=== PATIENT | female | born 1965 | race American Indian/Alaskan Native ===

== ENCOUNTER 2017-05-23 13:49 | Emergency (ER) | payer OTHER ==
--- NOTE | 2017-05-23 14:45 | Emergency Department Report ---
HPI - General Chief Complaint: Fall Time Seen by Provider: 05/23/17 14:28 - HPI HPI: This is a 52-year-old Afro-Nepalese female presents the emergency department after a slip and fall at school, where she works, that occurred just prior to presentation. She slipped on some water that was on a tiled floor and fell onto her knee and then fell backwards and hit her head. She denies any loss of consciousness. She has some pain to the front forehead, the back of her neck. She has pain to the right shoulder, right forearm, right knee and right foot. She also complains that she split the left great toenail. She has a past medical history of hypertension. Primary care physician is Dr. Ayers. She is not taken anything for her symptoms prior to presentation. ED Past Medical Hx - Past Medical History Previous Medical History?: Yes Hx Hypertension: Yes - Surgical History Past Surgical History?: Yes Additional Surgical History: wisdom teeth - Social History Smoking Status: Never Smoker Substance Use Type: None - Medications Home Medications: Home Medications Medication Instructions Recorded Confirmed Last Taken Type HYDROcodone/APAP 5-325 [[place] 1 each PO Q6HR PRN #12 tablet 05/23/17 Unknown Rx 5/325] Hydrochlorothiazide [Hctz] 12.5 mg PO QDAY 05/23/17 05/23/17 Unknown History Ibuprofen [Motrin 800 MG tab] 800 mg PO Q8HR PRN #20 tablet 05/23/17 Unknown Rx ED Review of Systems ROS: Stated complaint: FALL/RIGHT SIDE PAIN Other details as noted in HPI Comment: All other systems reviewed and negative Constitutional: denies: chills, fever Eyes: denies: eye pain, eye discharge, vision change ENT: denies: ear pain, throat pain Respiratory: denies: cough, shortness of breath, wheezing Cardiovascular: denies: chest pain, palpitations Gastrointestinal: denies: abdominal pain, nausea, diarrhea Genitourinary: denies: urgency, dysuria, discharge Musculoskeletal: arthralgia, myalgia Skin: denies: rash, lesions Neurological: headache. denies: weakness, numbness Physical Exam - Physical Exam Vital Signs: Vital Signs 05/23/17 05/23/17 14:00 14:08 Temperature 98.5 F Pulse Rate 79 Respiratory 18 18 Rate Blood Pressure 142/86 O2 Sat by Pulse 100 Oximetry Physical Exam: GENERAL: The patient is well-developed well-nourished. HEENT: Normocephalic. Atraumatic. Extraocular motions are intact. Patient has moist mucous membranes. Pupils equal reactive to light bilaterally. NECK: Supple. Trachea is midline. Full range of motion. There is some tenderness to palpation to both the midline and bilateral paraspinal neck. CHEST/LUNGS: Clear to auscultation. There is no respiratory distress noted. HEART/CARDIOVASCULAR: Regular. There is no tachycardia. There is no gallop rub or murmur. ABDOMEN: Abdomen is soft, nontender. Patient has normal bowel sounds. There is no abdominal distention. Morbidly obese habitus. SKIN: Skin is warm and dry. There is a fracture of the nail of the left great toe. NEURO: The patient is awake, alert, and oriented. The patient is cooperative. The patient has no focal neurologic deficits. The patient has normal speech. MUSCULOSKELETAL: There is tenderness to palpation along the right shoulder, forearm, right knee and right foot but no obvious deformity. Negative anterior and posterior drawer test of the right knee. No laxity with valgus or varus stress of the right knee. Radial pulses +2 over 4 bilaterally. Pedal pulses + 2 over 4 bilaterally. Cap refill less than 2 seconds. ED Course Vital Signs 05/23/17 05/23/17 14:00 14:08 Temperature 98.5 F Pulse Rate 79 Respiratory 18 18 Rate Blood Pressure 142/86 O2 Sat by Pulse 100 Oximetry ED Medical Decision Making - Radiology Data Radiology results: report reviewed, image reviewed interpreted by me: X-ray of the right shoulder, right forearm, right knee and right foot do not show any fractures, dislocations or any acute processes CT of the head does not show any acute process including no hemorrhage, mass, shift, diffuse edema or skull fracture. CT of the cervical spine stopped show any fracture, subluxation or any acute process. - Medical Decision Making 52-year-old female presents to the emergency department with complaint of a headache, neck pain, right shoulder and forearm pain, right knee and foot pain, that occurred after the patient slipped on water on the floor and fell onto that leg and eventually hit her head. No loss of consciousness. She does not have any focal, motor or sensory deficits in her cranial nerves are intact. X- rays were done of the painful joints but there was no fracture, dislocation or any acute processes. CT was done of the head and cervical spine that also did not show any fracture, bleed, dislocation or any acute processes. She was given a pain medication with some good relief. Towards the end of the workup she developed some spasms in the left leg so she received a muscle relaxing shot. She did get some relief. Patient was placed in a right knee immobilizer and given a right upper extremity sling. She was discharged home with some pain medications and a referral for the orthopedist. Vital signs stable throughout her ED course. She will return to the ER with any worsening of her symptoms or any acute distress. - Differential Diagnosis fracture, dislocation, subluxation, sprain, strain Critical Care Time: No Critical care attestation.: If time is entered above; I have spent that time in minutes in the direct care of this critically ill patient, excluding procedure time. ED Disposition Clinical Impression: Right foot pain Fall Qualifiers: Encounter type: initial encounter Qualified Code(s): W19.XXXA - Unspecified fall, initial encounter Right shoulder pain Qualifiers: Chronicity: acute Qualified Code(s): M25.511 - Pain in right shoulder Right knee pain Qualifiers: Chronicity: acute Qualified Code(s): M25.561 - Pain in right knee Disposition: - TO HOME OR SELFCARE Is pt being admited?: No Condition: Stable Instructions: Knee Pain (ED), Arthralgia (ED), Fall Prevention (ED) Additional Instructions: Please follow-up with a primary care physician. I've given you a referral for a local orthopedist, Dr. Ceja, the follow-up regarding your right shoulder, arm, knee and foot pain. Return to the emergency department with any worsening of your symptoms or any acute distress. You've been prescribed a medication that is sedating. Therefore this medication cannot be mixed with alcohol, or taken prior to driving, working, or being responsible for children. Prescriptions: HYDROcodone/APAP 5-325 [[place] 5/325] 1 each PO Q6HR PRN #12 tablet PRN Reason: Pain Ibuprofen [Motrin 800 MG tab] 800 mg PO Q8HR PRN #20 tablet PRN Reason: Pain Referrals: FIDEL HERNADEZ MD [Primary Care Provider] - 3-5 Days KALEIGH CEJA MD [Staff Physician] - 3-5 Days Forms: Work/School Release Form(ED) Time of Disposition: 17:31
--- NOTE | 2017-05-23 15:38 | XRay Report ---
RIGHT FOOT, 3 views: History: Right foot pain. The bony architecture is intact. Bony alignment is normal. No soft tissue abnormalities are seen. The joint spaces appear preserved. IMPRESSION: No acute injury is appreciated.
--- NOTE | 2017-05-23 15:39 | XRay Report ---
RIGHT KNEE, 3 views: History: Right knee pain. Moderate tricompartmental osteoarthritic changes are identified. No evidence for fracture, bone lesion or malalignment. Small joint effusion is suspected. IMPRESSION: No acute process. Osteoarthritis.
--- NOTE | 2017-05-23 15:39 | XRay Report ---
RIGHT FOREARM: History: Right arm pain. 2 nonstandard views of the right forearm are presented. No acute osseous abnormality or joint pathology is detected. The olecranon is not included. IMPRESSION: Limited but grossly negative right forearm.
--- NOTE | 2017-05-23 15:40 | XRay Report ---
RIGHT SHOULDER: History: Right shoulder pain. Routine views demonstrate normal bony and soft tissue structures with normal joint alignment of the shoulder. IMPRESSION: Unremarkable right shoulder.
[2017-05-23] MEDS ORDERED: PERCOCET 5/325 PO ONE (15:55)
--- NOTE | 2017-05-23 16:24 | Cat Scan Report ---
Cranial CT without contrast. History: Head trauma with pain. Findings: There is no evidence of acute hemorrhage or infarct. No masses or extra-axial collections. The ventricles are normal in size and contour. The posterior fossa is normal. The calvarium is intact. Round tiny calcifications in the corpus callosum are incidental findings. Impression: No acute findings.
--- NOTE | 2017-05-23 16:30 | Cat Scan Report ---
CT of the cervical spine without contrast. History: Neck pain after trauma. Findings: Study is technically suboptimal due to patient's body habitus resulting in poor image quality especially in the lower cervical spine. No definite evidence of fracture or subluxation is seen. There is [id number] spondylosis at C5-6 and C6-7. The odontoid is intact. No prevertebral soft tissue edema is seen. Impression: No acute findings. Please note technical limitations due to body habitus.
[2017-05-23] MEDS ORDERED: VALIUM IM ONE (17:41)
[2017-05-23 18:34] VITALS: BP 133/84
== END 2017-05-23 18:33 | disposition home or self-care (01) ==
LOC: ED 13:49
DX: M25.561 Pain in right knee (principal); M25.511 Pain in right shoulder; M79.671 Pain in right foot; I10 Essential (primary) hypertension; W01.0XXA Fall on same level from slipping, tripping and stumbling without subsequent striking against object, initial encounter; Y93.89 Activity, other specified; Y99.8 Other external cause status; Y92.89 Other specified places as the place of occurrence of the external cause
CPT/HCPCS: 29505; 70450; 72125; 73030; 73090; 73562; 73630; 96372; 99285; J3360

== ENCOUNTER 2018-07-01 09:36 | Emergency (ER) | payer OTHER ==
--- NOTE | 2018-07-01 11:06 | Emergency Department Report ---
HPI - General Chief Complaint: Dyspnea/Respdistress Time Seen by Provider: 07/01/18 10:50 ED Past Medical Hx - Past Medical History Hx Hypertension: Yes Additional medical history: LOW K+ - Surgical History Additional Surgical History: wisdom teeth - Social History Smoking Status: Never Smoker Substance Use Type: None - Medications Home Medications: Home Medications Medication Instructions Recorded Confirmed Last Taken Type HYDROcodone/APAP 5-325 [[place] 1 each PO Q6HR PRN #12 tablet 05/23/17 Unknown Rx 5/325] Ibuprofen [Motrin 800 MG tab] 800 mg PO Q8HR PRN #20 tablet 05/23/17 Unknown Rx hydroCHLOROthiazide [Hctz] 12.5 mg PO QDAY 05/23/17 05/23/17 Unknown History ED Review of Systems ROS: Stated complaint: GENERAL WEAKNESS Other details as noted in HPI Physical Exam - Physical Exam Vital Signs: Vital Signs 07/01/18 07/01/18 09:59 10:23 Temperature 99.1 F Pulse Rate 72 Respiratory 18 22 Rate Blood Pressure 144/75 O2 Sat by Pulse 100 Oximetry ED Course Vital Signs 07/01/18 07/01/18 09:59 10:23 Temperature 99.1 F Pulse Rate 72 Respiratory 18 22 Rate Blood Pressure 144/75 O2 Sat by Pulse 100 Oximetry Critical care attestation.: If time is entered above; I have spent that time in minutes in the direct care of this critically ill patient, excluding procedure time. ED Disposition Condition: Stable Referrals: MEHNAZ SIMMS MD [Primary Care Provider] - 3-5 Days
--- NOTE | 2018-07-01 11:07 | Emergency Department Report ---
Blank Doc - Documentation Documentation: 53-year-old female with history of hypertension presents to ED with shortness of breath since this morning. Patient reports near syncopal event while at work today. Patient denies chest pain, headache. Reports feeling dizzy and lightheaded. Patient also states she has noticed weight gain even while on a diet currently. Patient states she feels as if she may be retaining fluid. States her hands and legs feel tight. Denies any calf tenderness. On exam patient has trace pitting edema bilateral lower legs. Will obtain labs EKG chest x-ray.
[2018-07-01 11:25] LABS: Basophils % (Auto) 0.3 % (0.0-1.8); Eosinophils # (Auto) 0.1 K/mm3 (0.0-0.4); Hematocrit 38.2 % (30.3-42.9); Hemoglobin 12.3 gm/dl (10.1-14.3); Lymphocytes # (Auto) 2.2 K/mm3 (1.2-5.4); Lymphocytes % (Auto) 34.1 % (13.4-35.0); Mean Corpuscular HGB Conc 32 % (30-34); Mean Corpuscular Hemoglobin 28 pg (28-32); Mean Corpuscular Volume 87 fl (79-97); Monocytes # (Auto) 0.4 K/mm3 (0.0-0.8); Monocytes % (Auto) 5.7 % (0.0-7.3); Platelet Count 243 K/mm3 (140-440); Red Blood Count 4.41 M/mm3 (3.65-5.03)
[2018-07-01 11:35] LABS: INR 1.04 (0.87-1.13)
[2018-07-01 11:36] LABS: Partial Thromboplastin Time 28.4 Sec. (24.2-36.6)
--- NOTE | 2018-07-01 11:46 | XRay Report ---
ROUTINE CHEST, TWO VIEWS: HISTORY: Short of breath. The trachea, heart, mediastinal contour, lung melara and bony thorax are unremarkable. IMPRESSION: Unremarkable chest x-ray.
[2018-07-01 11:49] LABS: BUN/Creatinine Ratio 16; Blood Urea Nitrogen 11 mg/dL (7-17); Calcium 8.6 mg/dL (8.4-10.2); Hemolysis Index 4
--- NOTE | 2018-07-01 12:22 | Emergency Department Report ---
ED General Adult HPI - General Chief complaint: Dyspnea/Respdistress Stated complaint: GENERAL WEAKNESS Time Seen by Provider: 07/01/18 10:50 Source: patient, RN notes reviewed Mode of arrival: Wheelchair Limitations: Physical Limitation - History of Present Illness Initial comments: Primary care Dr.: En walsh This is a 53-year-old female who was not known to this provider previously, may have a history of hypertension, and obesity. Presents to the ER with a complaint of nontraumatic shortness of breath, weakness, lower extremity swelling. Symptoms constant, worse with physical exertion decreased with rest, and do not radiate anywhere. Denies DVT, pulmonary embolus risk factors. Not sure if she snores at night. Does not reports excess tiredness or fatigue during the day. Upon initial presentation in the emergency room, patient found to have jugular venous distention, bilateral lower extremity edema. She also appeared to be quite air hungry. Her lung sounds were clear, x-ray of the chest was clear, and a lower extremity DVT study was negative. Nevertheless, I was concerned about a large pulmonary embolus given her dramatic work of breathing, and empirically obtained a CT angiogram of the chest which was interpreted as negative. Prior to interpretation, patient was started on heparin and subsequently this was discontinued. My bedside echocardiogram did not demonstrate any large pericardial effusion, and LV function appear to be grossly intact. Patient remains pain-free at this time. Discussed the case with En, and Dr. Avila will be the accepting physician at [facility] to complete cardiac risk stratification. -: Sudden Location: left, right, lower extremity Consistency: constant Improves with: none Worsens with: none Associated Symptoms: loss of appetite, malaise, shortness of breath, syncope, weakness. denies: confusion, chest pain, cough, diaphoresis, headaches, nausea/ vomiting, rash, seizure - Related Data Home Medications Medication Instructions Recorded Confirmed Last Taken hydroCHLOROthiazide [Hctz] 12.5 mg PO QDAY 05/23/17 05/23/17 Unknown Previous Rx's Medication Instructions Recorded Last Taken Type HYDROcodone/APAP 5-325 [[place] 1 each PO Q6HR PRN #12 tablet 05/23/17 Unknown Rx 5/325] Ibuprofen [Motrin 800 MG tab] 800 mg PO Q8HR PRN #20 tablet 05/23/17 Unknown Rx Allergies Allergy/AdvReac Type Severity Reaction Status Date / Time amoxicillin Allergy Rash Verified 07/01/18 09:59 ED Review of Systems ROS: Stated complaint: GENERAL WEAKNESS Other details as noted in HPI Comment: All other systems reviewed and negative ED Past Medical Hx - Past Medical History Hx Hypertension: Yes Additional medical history: LOW K+ - Surgical History Additional Surgical History: wisdom teeth - Social History Smoking Status: Never Smoker Substance Use Type: None - Medications Home Medications: Home Medications Medication Instructions Recorded Confirmed Last Taken Type HYDROcodone/APAP 5-325 [[place] 1 each PO Q6HR PRN #12 tablet 05/23/17 Unknown Rx 5/325] Ibuprofen [Motrin 800 MG tab] 800 mg PO Q8HR PRN #20 tablet 05/23/17 Unknown Rx hydroCHLOROthiazide [Hctz] 12.5 mg PO QDAY 05/23/17 05/23/17 Unknown History ED Physical Exam - General Limitations: No Limitations General appearance: in distress, obese - Head Head exam: Present: atraumatic, normocephalic - Eye Eye exam: Present: normal appearance, EOMI. Absent: nystagmus - ENT ENT exam: Present: normal exam, normal orophraynx, mucous membranes moist, normal external ear exam - Neck Neck exam: Present: normal inspection, full ROM. Absent: tenderness, meningismus - Respiratory Respiratory exam: Present: normal lung sounds bilaterally, respiratory distress. Absent: wheezes, rales, rhonchi, stridor, decreased breath sounds - Cardiovascular Cardiovascular Exam: Present: normal rhythm, bradycardia, normal heart sounds. Absent: tachycardia, irregular rhythm, systolic murmur, diastolic murmur, rubs, gallop - GI/Abdominal GI/Abdominal exam: Present: soft. Absent: distended, tenderness, guarding, rebound, rigid, pulsatile mass - Extremities Exam Extremities exam: Present: normal inspection, full ROM, pedal edema, other (2+ pulses noted in the bilateral upper, lower extremities. Compartments soft. No long bony tenderness. The pelvis is stable.). Absent: calf tenderness - Back Exam Back exam: Present: normal inspection, full ROM. Absent: tenderness, CVA tenderness (R), paraspinal tenderness, vertebral tenderness - Neurological Exam Neurological exam: Present: alert, oriented X3, CN II-XII intact, other ( Extraocular movements intact. Tongue midline. No facial droop. Facial sensation intact to light touch in the V1, V2, V3 distribution bilaterally. 5 and 5 strength in 4 extremities.. Sensation is intact to light touch in 4 extremities.). Absent: motor sensory deficit - Psychiatric Psychiatric exam: Present: anxious - Skin Skin exam: Present: warm, dry, intact, normal color. Absent: rash ED Course Vital Signs 07/01/18 07/01/18 07/01/18 09:59 10:23 11:07 Temperature 99.1 F Pulse Rate 72 74 Respiratory 18 22 20 Rate Blood Pressure 144/75 Blood Pressure 150/77 [Right] O2 Sat by Pulse 100 99 Oximetry ED Medical Decision Making - Lab Data Result diagrams: 07/01/18 11:09 07/01/18 11:09 Vital Signs 07/01/18 07/01/18 07/01/18 09:59 10:23 11:07 Temperature 99.1 F Pulse Rate 72 74 Respiratory 18 22 20 Rate Blood Pressure 144/75 Blood Pressure 150/77 [Right] O2 Sat by Pulse 100 99 Oximetry Lab Results 07/01/18 07/01/18 07/01/18 Range/Units 11:09 11:09 11:09 WBC 6.5 (4.5-11.0) K/mm3 RBC 4.41 (3.65-5.03) M/mm3 Hgb 12.3 (10.1-14.3) gm/dl Hct 38.2 (30.3-42.9) % MCV 87 (79-97) fl MCH 28 (28-32) pg MCHC 32 (30-34) % RDW 14.0 (13.2-15.2) % Plt Count 243 (140-440) K/mm3 Lymph % (Auto) 34.1 (13.4-35.0) % [place] % (Auto) 5.7 (0.0-7.3) % Eos % (Auto) 2.0 (0.0-4.3) % Baso % (Auto) 0.3 (0.0-1.8) % Lymph # 2.2 (1.2-5.4) K/mm3 [place] # 0.4 (0.0-0.8) K/mm3 Eos # 0.1 (0.0-0.4) K/mm3 Baso # 0.0 (0.0-0.1) K/mm3 Seg Neutrophils % 57.9 (40.0-70.0) % Seg Neutrophils # 3.8 (1.8-7.7) K/mm3 PT 14.1 (12.2-14.9) Sec. INR 1.04 (0.87-1.13) APTT 28.4 (24.2-36.6) Sec. Sodium 143 (137-145) mmol/L Potassium 3.7 (3.6-5.0) mmol/L Chloride 110.3 H (98-107) mmol/L Carbon Dioxide 22 (22-30) mmol/L Anion Gap 14 mmol/L BUN 11 (7-17) mg/dL Creatinine 0.7 (0.7-1.2) mg/dL Estimated GFR > 60 ml/min BUN/Creatinine Ratio 16 % Glucose 81 (65-100) mg/dL Calcium 8.6 (8.4-10.2) mg/dL Troponin T < 0.010 (0.00-0.029) ng/mL NT-Pro-B Natriuret Pep (0-900) pg/mL 07/01/18 Range/Units 11:09 WBC (4.5-11.0) K/mm3 RBC (3.65-5.03) M/mm3 Hgb (10.1-14.3) gm/dl Hct (30.3-42.9) % MCV (79-97) fl MCH (28-32) pg MCHC (30-34) % RDW (13.2-15.2) % Plt Count (140-440) K/mm3 Lymph % (Auto) (13.4-35.0) % [place] % (Auto) (0.0-7.3) % Eos % (Auto) (0.0-4.3) % Baso % (Auto) (0.0-1.8) % Lymph # (1.2-5.4) K/mm3 [place] # (0.0-0.8) K/mm3 Eos # (0.0-0.4) K/mm3 Baso # (0.0-0.1) K/mm3 Seg Neutrophils % (40.0-70.0) % Seg Neutrophils # (1.8-7.7) K/mm3 PT (12.2-14.9) Sec. INR (0.87-1.13) APTT (24.2-36.6) Sec. Sodium (137-145) mmol/L Potassium (3.6-5.0) mmol/L Chloride (98-107) mmol/L Carbon Dioxide (22-30) mmol/L Anion Gap mmol/L BUN (7-17) mg/dL Creatinine (0.7-1.2) mg/dL Estimated GFR ml/min BUN/Creatinine Ratio % Glucose (65-100) mg/dL Calcium (8.4-10.2) mg/dL Troponin T (0.00-0.029) ng/mL NT-Pro-B Natriuret Pep 228.0 (0-900) pg/mL - EKG Data -: EKG Interpreted by Me EKG shows normal: sinus rhythm Rate: bradycardia - EKG Data When compared to previous EKG there are: previous EKG unavailable 07/01/18 15:27 bradycardia 54 bpm, normal axis, normal intervals, motion artifact, premature atrial complex, not a stemi - Radiology Data Radiology results: report reviewed, image reviewed X-ray the chest is negative. CT scan of the chest is negative - Medical Decision Making Differential diagnosis, including but not limited to: Orthostasis, vagal event, structural cardiac disease, arrhythmia, acute coronary syndrome, congestive heart failure, pulmonary embolus, pulmonary hypertension Assessment and plan: 53-year-old obese female with painless shortness of breath , and near syncope. She is afebrile with reassuring vital signs. Has an NIH score of 0 with a GCS of 15. Has been in the ER 4 hours without clinical decompensation or hypoxia that we have noted. Was initially quite symptomatically, now appearing improved with minimal intervention. Patient [facility] be [facility] to [facility] to complete cardiac risk stratification. Has appropriate strength and sensation in bilateral lower extremities, with no back pain, and no clinical indication of epidural compression syndrome. Critical care attestation.: If time is entered above; I have spent that time in minutes in the direct care of this critically ill patient, excluding procedure time. ED Disposition Clinical Impression: Dyspnea, Near syncope Disposition: DC/TX- [facility] IP Is pt being admited?: No Does the pt Need Aspirin: Yes Condition: Good Referrals: MEHNAZ SIMMS MD [Primary Care Provider] - 3-5 Days
[2018-07-01] MEDS ORDERED: HEPARIN 10,000 UNITS/10 ML IV ONE (12:54)
[2018-07-01] MEDS ORDERED: HEPARIN/ 0.45% NACL-25,000 UNIT/500 ML 25,000 UNIT/500 ML BAG IV SCH (13:00)
--- NOTE | 2018-07-01 14:02 | Cat Scan Report ---
CTA CHEST: HISTORY: Dyspnea. COMPARISON: none. TECHNIQUE: Helical CT in 1.25mm intervals following IV contrast. Pulmonary embolus protocol. Sagittal and coronal reformatted images. Rotational MIP images. FINDINGS: Contrast bolus is satisfactory. No pulmonary embolus is identified. Thyroid gland: Normal. Tracheobronchial tree: Normal. Esophagus: Normal. Heart: Normal. Pericardium: Normal. Mediastinum: Normal. Lung Fall: normal. Pleural Spaces: Normal. Musculoskeletal: Normal. Limited images of the upper abdomen demonstrate surgical changes in the proximal stomach and cholelithiasis. IMPRESSION: No evidence for pulmonary embolus. Unremarkable CT chest with contrast. Cholelithiasis.
--- NOTE | 2018-07-01 14:34 | History and Physical Report ---
Medications and Allergies Allergies Allergy/AdvReac Type Severity Reaction Status Date / Time amoxicillin Allergy Rash Verified 07/01/18 09:59 Home Medications Medication Instructions Recorded Confirmed Last Taken Type HYDROcodone/APAP 5-325 [[place] 1 each PO Q6HR PRN #12 tablet 05/23/17 Unknown Rx 5/325] Ibuprofen [Motrin 800 MG tab] 800 mg PO Q8HR PRN #20 tablet 05/23/17 Unknown Rx hydroCHLOROthiazide [Hctz] 12.5 mg PO QDAY 05/23/17 05/23/17 Unknown History Active Meds: Active Medications Heparin Sodium/Sodium Chloride (Heparin/ 0.45% Nacl-25,000 Unit/500 Ml) 25,000 unit in 500 mls @ 30 mls/hr IV TITR MORALES; Protocol Exam - Constitutional Vitals: Temp Pulse Resp BP Pulse Ox 99.1 F 74 20 150/77 99 07/01/18 09:59 07/01/18 11:07 07/01/18 11:07 07/01/18 11:07 07/01/18 11:07 Results - Labs CBC & Chem 7: 07/01/18 11:09 07/01/18 11:09 Labs: Abnormal lab results 07/01/18 Range/Units 11:09 Chloride 110.3 H (98-107) mmol/L
[2018-07-01] MEDS ORDERED: BABY ASPIRIN PO ONE (15:29)
[2018-07-01 17:38] VITALS: BP 146/76
--- NOTE | 2018-07-02 13:11 | Vascular Lab Report ---
LOWER EXTREMITY VENOUS DUPLEX: REASON FOR EXAM: Pulmonary embolism. COMMENTS ON THE RIGHT: All veins visualized are freely compressible without evidence of internal echogenicity. Flow is spontaneous and phasic throughout. COMMENTS ON THE LEFT: All veins visualized are freely compressible without evidence of internal echogenicity. Flow is spontaneous and phasic throughout. IMPRESSION: No evidence of acute or chronic deep venous thrombosis in either lower extremity.
== END 2018-07-01 21:40 | disposition short-term general hospital (02) ==
LOC: ED 09:36
DX: R55 Syncope and collapse (principal); R06.00 Dyspnea, unspecified; R22.43 Localized swelling, mass and lump, lower limb, bilateral
CPT/HCPCS: 36415; 71046; 71275; 80048; 83880; 84484; 85025; 85610; 85730; 93005; 93010; 93970; 96374; 99285; J1644; Q9967